=== PATIENT | female | born 1940 | race Caucasian/White ===

== ENCOUNTER 2017-12-07 23:52 | Observation (INO) | payer OTHER, BC ==
[2017-12-08] MEDS ORDERED: MECLIZINE HCL 25 MG TABLET (FP) PO ONE (00:18)
[2017-12-08 00:21] VITALS: BMI 30.2
--- NOTE | 2017-12-08 00:28 | PDOC ---
History of Present Illness - General Chief Complaint: Syncope/Near Syncope Stated Complaint: SYNCOPE History Source: Patient Exam Limitations: No Limitations - History of Present Illness Initial Comments: 12/08/17 00:20 Patient is a 77-year-old female with history of hypertension, diverticulitis, osteoarthritis, DJD pulmonary resection with excision of benign tumor, tonsillectomy, here with complaints of dizziness which started a bout an hour prior to presentation. Patient states she took her nighttime meds,then went to bed. She sat on the edge of the bed frame and then when trying to lay down she had sudden onset of dizzinessvertigo. She called her niece from the next room and had her put her to bed. However when she attemp she was too so EMS was called. She had no prodrome of ALVAREZ, diaphoresis, chest pain, nausea, vomiting. She had 1 prior episode of same symptoms many years ago. PMD: Dr. Bocanegra PMHX: as above PSOCHX: neg cig (stopped 40 years ago), neg etoh, neg drugs, lives with nieces ALL: NKDA GENERAL/CONSTITUTIONAL: [No fever or chills. No weakness. No weight change.] HEAD, EYES, EARS, NOSE AND THROAT: [No change in vision. No ear pain or discharge. No sore throat.] CARDIOVASCULAR: [No chest pain or shortness of breath.] RESPIRATORY: [No cough, wheezing, or hemoptysis.] GASTROINTESTINAL: [No nausea, vomiting, diarrhea or constipation. No rectal bleeding.] GENITOURINARY: [No dysuria, frequency, or change in urination.] MUSCULOSKELETAL: [No joint or muscle swelling or pain. No neck or back pain.] SKIN AND BREASTS: [No rash or easy bruising.] NEUROLOGIC: [No headache, (+) vertigo, (-) loss of consciousness, or loss of sensation.] PSYCHIATRIC: [No depression or anxiety.] ENDOCRINE: [No increased thirst. No abnormal weight change.] HEMATOLOGIC/LYMPHATIC: [No anemia, easy bleeding, or history of blood clots.] ALLERGIC/IMMUNOLOGIC: [No hives or skin allergy. No latex allergy.] GENERAL: [The patient is awake, alert, and fully oriented, in no acute distress. ] HEAD: [Normal with no signs of trauma.] EYES: [Pupils equal, round and reactive to light, extraocular movements intact, sclera anicteric, conjunctiva clear.] ENT: [Ears normal, nares patent, oropharynx clear without exudates. Moist mucous membranes.] NECK: [Normal range of motion, supple without lymphadenopathy, JVD, or masses.] LUNGS: [Breath sounds equal, clear to auscultation bilaterally. No wheezes, and no crackles.] HEART: [Regular rate and rhythm, normal S1 and S2 without murmur, rub.] ABDOMEN: [Soft, nontender, normoactive bowel sounds. No guarding, no rebound. No masses.] EXTREMITIES: [Normal range of motion, no edema. No clubbing or cyanosis. No cords, erythema, or tenderness.] NEUROLOGICAL: [Cranial nerves II through XII grossly intact. Normal speech, normal gait, no nystagmus.] PSYCH: [Normal mood, normal affect.] SKIN: [Warm, Dry, normal turgor, no rashes or lesions noted.] Past History - Past Medical History Allergies/Adverse Reactions: Allergies Allergy/AdvReac Type Severity Reaction Status Date / Time No Known Allergies Allergy Verified 12/08/17 01:05 Home Medications: Ambulatory Orders Aspirin Coated [Ecotrin -] 81 mg PO DAILY 12/08/17 Docusate Sodium [Colace] 200 mg PO HS 12/08/17 Losartan Potassium 50 mg PO BID 12/08/17 *Physical Exam - Vital Signs Last Vital Signs Temp Pulse Resp BP Pulse Ox 97.9 F 74 18 164/82 95 12/08/17 00:16 12/08/17 00:16 12/08/17 00:16 12/08/17 00:16 12/08/17 00:16 ED Treatment Course - LABORATORY CBC & Chemistry Diagram: 12/08/17 00:52 12/08/17 00:52 - ADDITIONAL ORDERS Additional order review: Laboratory Results 12/08/17 12/08/17 01:21 00:52 Sodium 140 Potassium 4.0 Chloride 103 Carbon Dioxide 26 Anion Gap 11 BUN 17 Creatinine 0.9 Creat Clearance w eGFR > 60 Random Glucose 110 H Calcium 8.7 Total Bilirubin 0.3 AST 18 ALT 17 Alkaline Phosphatase 86 Troponin I < 0.02 Total Protein 7.5 Albumin 3.5 Urine Color Ltyellow Urine Appearance Slcloudy Urine pH 6.0 Ur Specific [place] 1.010 Urine Protein Negative Urine Glucose (UA) Negative Urine Ketones Negative Urine Blood 1+ H Urine Nitrite Negative Urine Bilirubin Negative Urine Urobilinogen Negative Ur Leukocyte Esterase 1+ H Urine WBC (Auto) 12 Urine RBC (Auto) 23 Ur Epithelial Cells Moderate Urine Mucus Rare 12/08/17 00:52 RBC 4.60 MCV 88.0 MCHC 33.7 RDW 13.1 MPV 8.3 Neutrophils % 72.2 Lymphocytes % 18.5 Monocytes % 7.9 Eosinophils % 0.2 Basophils % 1.2 - RADIOLOGY Radiology Studies Ordered: Category Date Time Status BRAIN CTA [CT] Stat CT Scan 12/08/17 01:[address] WITHOUT CONTRAST [CT] Stat CT Scan 12/08/17 00:18 Taken NECK CTA [CT] Stat CT Scan 12/08/17 01:44 Ordered - Medications Given in the ED: ED Medications Discontinued Medications Generic Name Dose Route Start Last Admin Trade Name Freq PRN Reason Stop Dose Admin Ceftriaxone Sodium 1,000 mg/ 50 mls @ 100 mls/hr 12/08/17 03:11 12/08/17 03: 27 Dextrose IVPB 12/08/17 03:40 100 mls/hr ONCE ONE Administration Lorazepam 1 mg 12/08/17 03:07 12/08/17 03:26 Ativan Injection - IVPUSH 12/08/17 03:08 1 mg ONCE ONE Administration Meclizine HCl 50 mg 12/08/17 00:18 12/08/17 01:12 Antivert - PO 12/08/17 00:19 50 mg ONCE ONE Administration Medical Decision Making - Medical Decision Making 12/08/17 00:20 Patient is a 77-year-old female with history of hypertension, diverticulitis, osteoarthritis, DJD pulmonary resection with excision of benign tumor, tonsillectomy, here with complaints of dizziness which started a bout an hour prior to presentation. symptoms consistent with vertigo. Will get ct head 12/08/17 01:33 Patient Full Name: OPAL THOMASON Patient Accession No: [id number] Patient : [id number] Reason for Exam: dizziness Referring Physician: Patient Name: KATELIN JOSEPH PRELIMINARY REPORT FROM IMAGING MOBILE ENGINEER EXAM: CT brain noncontrast HISTORY: Dizziness IMAGES: 164 EXAM DATE AND TIME: 2017-12-08 00:38:09 FINDINGS: No evidence of intracranial hemorrhage, mass effect or recent stroke of a major vascular distribution. Diffuse white matter changes, likely from chronic ischemia. Cerebral atrophy. Mastoid air cells and imaged paranasal sinuses clear. No fracture. Individualized dose optimization techniques were used for this CT. THIS DOCUMENT HAS BEEN ELECTRONICALLY SIGNED Ramone Solano D.O. 12/08/2017 00:56 EST MRupaD. Please call Imaging Civil Project Engineer [phone] ([phone]) with questions. INTERPRETING RADIOLOGIST: Ramone Solano MD Electronically Signed: Dec 08, 2017 12:56AM EDT EKG SR rate 72, NAD, incomplete RBBB 12/08/17 03:51 Noted to have a wbc on UA treat with Rocephin neg CTA head and neck Vertigo symptoms not resolved will admit *DC/Admit/Observation/Transfer Diagnosis at time of Disposition: UTI (urinary tract infection), Dizziness - Discharge Dispostion Condition at time of disposition: Stable - Referrals Referrals: Gurwinder Bocanegra MD [Primary Care Provider] - - Patient Instructions - Post Discharge Activity
[2017-12-08] MEDS ORDERED: SODIUM CHLORIDE 1,000 ML IV SCH (00:30)
[2017-12-08 01:06] LABS: BASO % 1.2 % (0-2.0); EOS % 0.2 % (0-4.5); HEMATOCRIT 40.5 % (32.4-45.2); HEMOGLOBIN 13.6 GM/dL (10.7-15.3); LYMPH % 18.5 % (8-40); MCH 29.6 pg (25.7-33.7); MCHC 33.7 g/dl (32.0-36.0); MEAN PLT VOLUME 8.3 fl (7.5-11.1); MONO % 7.9 % (3.8-10.2); NEUT % 72.2 % (42.8-82.8); PLATELET COUNT 280 K/MM3 (134-434); RDW 13.1 % (11.6-15.6); WHITE BLOOD COUNT 8.7 K/mm3 (4.0-10.0)
[2017-12-08 01:35] LABS: ALBUMIN 3.5 g/dl (3.4-5.0); ANION GAP 11 MMOL/L (8-16); BILIRUBIN,TOTAL 0.3 mg/dL (0.2-1.0); BLOOD UREA NITROGEN 17 mg/dL (7-18); CALCIUM 8.7 mg/dL (8.5-10.1); CHLORIDE 103 mmol/L (98-107); CO2 26 mmol/L (21-32); CREATININE 0.9 mg/dL (0.55-1.02); GLUCOSE,RANDOM 110 mg/dL (74-106); SGOT/AST 18 U/L (15-37); SGPT/ALT 17 U/L (12-78); SODIUM 140 mmol/L (136-145); TOT PROT 7.5 g/dl (6.4-8.2)
[2017-12-08 01:36] LABS: URINE APPEARANCE SLCLOUDY; URINE BILIRUBIN NEGATIVE (<2.0 mg/dL); URINE COLOR LTYELLOW; URINE GLUCOSE (UA) NEGATIVE (NEGATIVE); URINE KETONE NEGATIVE (NEGATIVE); URINE NITRITE NEGATIVE (NEGATIVE); URINE PROTEIN NEGATIVE (NEGATIVE); URINE UROBILINOGEN NEGATIVE mg/dL (0.2-1.0)
[2017-12-08 01:37] LABS: ALK PHOS 86 U/L (45-117)
[2017-12-08 01:39] LABS: URINE LEUK ESTERASE 1+ (NEGATIVE)
[2017-12-08 01:40] LABS: EPI CELLS MODERATE /HPF (FEW); URINE MUCUS RARE
[2017-12-08] MEDS ORDERED: CEFTRIAXONE 1,000 MG in DEXTROSE 5%-WATER - 50 ML IVPB ONE (03:11)
--- NOTE | 2017-12-08 03:11 | PDOC ---
*Physical Exam - Vital Signs Last Vital Signs Temp Pulse Resp BP Pulse Ox 97.9 F 74 18 164/82 95 12/08/17 00:16 12/08/17 00:16 12/08/17 00:16 12/08/17 00:16 12/08/17 00:16 Heart Score/ECG Review - ECG Impressions Comment:: 12/08/17 03:31 EKG with sinus rhythm, TWF in III, RBBB noted, no prior, no ischemic changes. ED Treatment Course - LABORATORY CBC & Chemistry Diagram: 12/08/17 00:52 12/08/17 00:52 - ADDITIONAL ORDERS Additional order review: Laboratory Results 12/08/17 12/08/17 01:21 00:52 Sodium 140 Potassium 4.0 Chloride 103 Carbon Dioxide 26 Anion Gap 11 BUN 17 Creatinine 0.9 Creat Clearance w eGFR > 60 Random Glucose 110 H Calcium 8.7 Total Bilirubin 0.3 AST 18 ALT 17 Alkaline Phosphatase 86 Troponin I < 0.02 Total Protein 7.5 Albumin 3.5 Urine Color Ltyellow Urine Appearance Slcloudy Urine pH 6.0 Ur Specific [place] 1.010 Urine Protein Negative Urine Glucose (UA) Negative Urine Ketones Negative Urine Blood 1+ H Urine Nitrite Negative Urine Bilirubin Negative Urine Urobilinogen Negative Ur Leukocyte Esterase 1+ H Urine WBC (Auto) 12 Urine RBC (Auto) 23 Ur Epithelial Cells Moderate Urine Mucus Rare 12/08/17 00:52 RBC 4.60 MCV 88.0 MCHC 33.7 RDW 13.1 MPV 8.3 Neutrophils % 72.2 Lymphocytes % 18.5 Monocytes % 7.9 Eosinophils % 0.2 Basophils % 1.2 - Medications Given in the ED: ED Medications Discontinued Medications Generic Name Dose Route Start Last Admin Trade Name Freq PRN Reason Stop Dose Admin Meclizine HCl 50 mg 12/08/17 00:18 12/08/17 01:12 Antivert - PO 12/08/17 00:19 50 mg ONCE ONE Administration Medical Decision Making - Medical Decision Making 12/08/17 03:07 The patient was seen and evaluated in conjunction with midlevel provider under my direct supervision, ancillary studies were reviewed. I agree with the plan as outlined by THOMAS Kenney 77-year-old female with history of hypertension, diverticulitis,osteoarthritis, DJD pulmonary resection with excision of benign tumor, tonsillectomy, c/o dizziness worse with movement, vertigo-like sx. +urinary frequency, but no abd pain, hematuria, dysuria. no cp or sob, focal weakness or paresthesias. vitals wnl. meclizine --> ativan for treatment of vertigo/dizziness. IVF. basic labs, EKG, CT head, CTA head and neck to r/o central vertigo, vertebrobasilar insufficiency, posterior circ stroke,dissection/aneurysm. UA +UTI, WBCs and RBCs, IV ceftriaxone to treat empirically for possible underlying UTI unable to ambulate, fall risk CTA neg for acute infarct, small plaque w/o significant stenosis in b/l ICA. admit observation for supportive care, medical management and hydration, symptom control. called to PMD Dr. Bocanegra. admit to hospitalist 12/08/17 03:26 12/08/17 03:31 *DC/Admit/Observation/Transfer Diagnosis at time of Disposition: UTI (urinary tract infection), Dizziness - Discharge Dispostion Condition at time of disposition: Stable Decision to Admit order: Yes - Referrals Referrals: Gurwinder Bocanegra MD [Primary Care Provider] - - Patient Instructions - Post Discharge Activity
[2017-12-08] MEDS ORDERED: LORazepam 2 MG/ML SDV VIAL ONE (03:19)
[2017-12-08] MEDS ORDERED: CEFTRIAXONE 1 GM/50 ML BAG ONE ×2 (03:19→09:04)
--- NOTE | 2017-12-08 04:07 | PN ---
Teaching Attending Note Name of Resident: Sharda Matias ATTENDING PHYSICIAN STATEMENT I saw and evaluated the patient. I reviewed the resident's note and discussed the case with the resident. I agree with the resident's findings and plan as documented. SUBJECTIVE: Patient is a 77 year old woman with history of hypertension, diverticulitis, osteoarthritis, DJD, pulmonary resection with excision of benign tumor, tonsillectomy, who presents with complaints of dizziness for 1 hour. Says she took her nighttime medications, then went to bed. She sat on the edge of the bed frame and then when trying to lay down she had sudden onset of dizziness vertigo. She called her niece from the next room and had her put her to bed. However when symptoms persisted EMS was called. She had no diaphoresis, chest pain, nausea, vomiting, fecal or urinary incontinence. She had 1 prior episode of same symptoms many years ago. OBJECTIVE: Alert Vital Signs Period Temp Pulse Resp BP Sys/Ruth Pulse Ox Last 24 Hr 97.9 F 74 18 164/82 95 HEENT: No Jaundice, eye redness or discharge, PERRLA, EOMI. Normocephalic, atraumatic. External ears are normal and hearing is grossly intact. No nasal discharge. Neck: Supple, nontender. No palpable adenopathy or thyromegaly. No JVD Chest: Good effort. Clear to auscultation and percussion. Heart: Regular. No S3, rub or murmur Abdomen: Not distended, soft, nontender and no HSM. No rebound or guarding. Normoactive bowel sounds. Ext: Peripheral pulses intact. No leg edema. Skin: Warm and dry. No petechiae, rash or ecchymosis. Neuro: Alert. Oriented x3. CN 2-12 grossly intact. Sensation grossly intact in all four extremities and DTR are symmetric. Current Medications Generic Name Dose Route Start Last Admin Trade Name Freq PRN Reason Stop Dose Admin Sodium Chloride 1,000 mls @ 150 mls/hr 12/08/17 00:30 12/08/17 01:12 Normal Saline - IV 150 mls/hr ASDIR LORAINE Administration Home Medications Medication Instructions Recorded Aspirin Coated [Ecotrin -] 81 mg PO DAILY 12/08/17 Docusate Sodium [Colace] 200 mg PO HS 12/08/17 Losartan Potassium 50 mg PO BID 12/08/17 Abnormal Lab Results 12/08/17 12/08/17 00:52 01:21 Random Glucose 110 H Urine Blood 1+ H Ur Leukocyte Esterase 1+ H ASSESSMENT AND PLAN: 1. Dizziness - Either one or a combination of UTI, uncontrolled hypertension and effect of the hot weather may explain dizziness. Got meclizine for vertigo - patient counseled to ensure adequate hydration and avoid sudden head turns. Will treat UTI with Ceftriaxone pending culture, give her IV NS, and add amlodipine to improve BP control. Monitor on telemetry, get carotid doppler and brain MRI. Implement fall precautions. Consult neurology. 2. Obesity - Will provide patient all the necessary assistance, counseling and positive reinforcement to facilitate weight loss. Consult leaf binner. 3. DVT prophylaxis - Lovenox 40 mg SQ q 24 hours. 4. Advance directives - Full code
--- NOTE | 2017-12-08 05:50 | HP ---
CHIEF COMPLAINT: dizziness PCP: Dr. Gurwinder Bocanegra HISTORY OF PRESENT ILLNESS: 77 y/o female with PMH of HTN, osteoarthritis, DJD, diverticulitis s/p colonic resection, pulmonary resection with benign tumor excision presents to the ED with a one hour history of vertigo. Patient states that she felt fine during the day and then as she was going to bed started to feel that the room was spinning around her. She tried to lay down to go to sleep but the dizziness persisted and she called her niece to bring her to the ER. She denies any nausea /vomiting/diarrhea. ER course was notable for: (1) CT brain was negative for ICH, (2) CTA was negative for acute infarct (3) U/A positive for UTI Recent Travel: none PAST MEDICAL HISTORY: see HPI PAST SURGICAL HISTORY: see HPI Social History: Smoking: former smoker quit 40 years ago Alcohol:denies Drugs: denies lives with her nieces; ambulates with walker Family History: Allergies No Known Allergies Allergy (Verified 12/08/17 01:05) HOME MEDICATIONS: Home Medications Medication Instructions Recorded Aspirin Coated [Ecotrin -] 81 mg PO DAILY 12/08/17 Docusate Sodium [Colace] 200 mg PO HS 12/08/17 Losartan Potassium 50 mg PO BID 12/08/17 REVIEW OF SYSTEMS CONSTITUTIONAL: Absent: fever, chills, diaphoresis, generalized weakness, malaise, loss of appetite, weight change HEENT: Absent: rhinorrhea, nasal congestion, throat pain, throat swelling, difficulty swallowing, mouth swelling, ear pain, eye pain, visual changes CARDIOVASCULAR: Present: lightheadedness, Absent: chest pain, syncope, palpitations, irregular heart rate, peripheral edema RESPIRATORY: Absent: cough, shortness of breath, dyspnea with exertion, orthopnea, wheezing, stridor, hemoptysis GASTROINTESTINAL: Absent: abdominal pain, abdominal distension, nausea, vomiting, diarrhea, constipation, melena, hematochezia GENITOURINARY: Absent: dysuria, frequency, urgency, hesitancy, hematuria, flank pain, genital pain MUSCULOSKELETAL: Absent: myalgia, arthralgia, joint swelling, back pain, neck pain SKIN: Absent: rash, itching, pallor HEMATOLOGIC/IMMUNOLOGIC: Absent: easy bleeding, easy bruising, lymphadenopathy, frequent infections ENDOCRINE: Absent: unexplained weight gain, unexplained weight loss, heat intolerance, cold intolerance NEUROLOGIC: Present: dizziness, Absent: headache, focal weakness or paresthesias, unsteady gait, seizure, mental status changes, bladder or bowel incontinence PSYCHIATRIC: Absent: anxiety, depression, suicidal or homicidal ideation, hallucinations. PHYSICAL EXAMINATION Vital Signs - 24 hr 12/08/17 12/08/17 00:16 02:45 Temperature 97.9 F 98.3 F Pulse Rate 74 Pulse Rate [ 72 Apical] Respiratory 18 18 Rate Blood Pressure 164/82 Blood Pressure 164/68 [Right Arm] O2 Sat by Pulse 95 100 Oximetry (%) ORTHOSTATIC VITALS: laying (135/71), sitting up (145/84), standing up (178/92) GENERAL: Awake, alert, and fully oriented, in no acute distress. EARS, NOSE, THROAT: Ears normal, no fluid visualized; both tympanic membranes visualized. NECK:no JVD appreciated LUNGS:CTA B/L; no rales, rhonchi, wheezing HEART: Regular rate and rhythm, normal S1 and S2 without murmur, rub or gallop. ABDOMEN: Soft, nontender, not distended, normoactive bowel sounds, no guarding, no rebound, no masses. No hepatomegaly or splenomegaly. MUSCULOSKELETAL: Normal range of motion at all joints. No bony deformities or tenderness. No CVA tenderness. EXTREMITIES: warm; well perfused, no clubbing/cyanosis or LE edema NEUROLOGICAL: Cranial nerves II-XII intact. Normal speech; weakness upon ambulation PSYCHIATRIC: Cooperative. Good eye contact. Appropriate mood and affect. SKIN: Warm, dry, normal turgor, no rashes or lesions noted, normal capillary refill. Laboratory Results - last 24 hr 12/08/17 12/08/17 12/08/17 00:52 00:52 01:21 WBC 8.7 RBC 4.60 Hgb 13.6 Hct 40.5 MCV 88.0 MCH 29.6 MCHC 33.7 RDW 13.1 Plt Count 280 MPV 8.3 Absolute Neuts (auto) 6.3 Neutrophils % 72.2 Lymphocytes % 18.5 Monocytes % 7.9 Eosinophils % 0.2 Basophils % 1.2 Nucleated RBC % 0 Sodium 140 Potassium 4.0 Chloride 103 Carbon Dioxide 26 Anion Gap 11 BUN 17 Creatinine 0.9 Creat Clearance w eGFR > 60 Random Glucose 110 H Calcium 8.7 Total Bilirubin 0.3 AST 18 ALT 17 Alkaline Phosphatase 86 Troponin I < 0.02 Total Protein 7.5 Albumin 3.5 Urine Color Ltyellow Urine Appearance Slcloudy Urine pH 6.0 Ur Specific [place] 1.010 Urine Protein Negative Urine Glucose (UA) Negative Urine Ketones Negative Urine Blood 1+ H Urine Nitrite Negative Urine Bilirubin Negative Urine Urobilinogen Negative Ur Leukocyte Esterase 1+ H Urine WBC (Auto) 12 Urine RBC (Auto) 23 Ur Epithelial Cells Moderate Urine Mucus Rare ASSESSMENT/PLAN: 77 y/o female with PMH of HTN, DJD, diverticulitis presents to the ED with one hour history of vertigo upon bedtime. #1: Vertigo: vertigo possibly 2/2 UTI -CT brain negative in addition to CTA -MRI brain ordered -Neuro consulted -carotid dopplers ordered -meclizine PRN for vertigo #2: Hypertension -added norvasc 5 daily #3: UTI -ceftriaxone 1gram daily -ID consulted DVT prophylaxis: lovenox 40 daily F/E/N: NS @50mls/hr replete electrolytes when needed sodium controlled diet dispo: telemetry Problem List - Problem (1) Dizziness Code(s): R42 - DIZZINESS AND GIDDINESS (2) UTI (urinary tract infection) Code(s): N39.0 - URINARY TRACT INFECTION, SITE NOT SPECIFIED Visit type - Emergency Visit Emergency Visit: Yes ED Registration Date: 12/08/17 Care time: The patient presented to the Emergency Department on the above date and was hospitalized for further evaluation of their emergent condition. - New Patient This patient is new to me today: Yes Date on this admission: 12/08/17 - Critical Care Critical Care patient: No Hospitalist Screening - Colonoscopy Questionnaire Colonoscopy Questionnaire: Colonoscopy Questionnaire - Patient: 50 - 75 years old and never had a screening colonoscopy: Unknown History of colon or rectal polyps, or CA: Unknown History of IBD, Crohn's disease or UC: Unknown History of abdominal radiation therapy as a child: Unknown - Relative: 1 with colon or rectal CA, or polyps at age 60 or younger: Unknown Colon or rectal CA diagnosed at age 45 or younger: Unknown Multiple relatives with colon or rectal CA: Unknown - Outcome: Screening Result: Negative Screen
[2017-12-08] MEDS ORDERED: amLODIPine BESYLATE 5 MG TABLET (FP) ONE ×2 (06:15→10:20)
[2017-12-08] MEDS: amLODIPine BESYLATE 5 MG TABLET (FP) PO SCH ×2 (06:33→16:05)
[2017-12-08] MEDS: SODIUM CHLORIDE 1,000 ML IV SCH ×2 (06:33→12:40)
[2017-12-08] MEDS ORDERED: ASPIRIN COATED 81 MG TABLET.EC ONE (09:03)
[2017-12-08] MEDS ORDERED: ENOXAPARIN NA (PORCINE) 40 MG/0.4 ML DISP.SYRIN SQ ONE (09:04)
[2017-12-08] MEDS: ENOXAPARIN NA (PORCINE) 40 MG/0.4 ML DISP.SYRIN SQ SCH (09:05)
[2017-12-08] MEDS: ASPIRIN COATED 81 MG TABLET.EC PO SCH (09:05)
[2017-12-08 09:25] LABS: HEMATOCRIT 41.1 % (32.4-45.2); HEMOGLOBIN 13.9 GM/dL (10.7-15.3); MCH 29.8 pg (25.7-33.7); MCHC 33.7 g/dl (32.0-36.0); MEAN CELL VOLUME 88.2 fl (80-96); PLATELET COUNT 243 K/MM3 (134-434); RBC 4.66 M/mm3 (3.60-5.2); WHITE BLOOD COUNT 7.4 K/mm3 (4.0-10.0)
[2017-12-08 10:04] LABS: ALBUMIN 3.3 g/dl (3.4-5.0); ANION GAP 10 MMOL/L (8-16); BLOOD UREA NITROGEN 12 mg/dL (7-18); CALCIUM 8.7 mg/dL (8.5-10.1); CHLORIDE 110 mmol/L (98-107); CO2 24 mmol/L (21-32); GLUCOSE,RANDOM 95 mg/dL (74-106); MAGNESIUM 2.2 mg/dL (1.8-2.4); PHOSPHOROUS 3.1 mg/dL (2.5-4.9); POTASSIUM 3.8 mmol/L (3.5-5.1); SGOT/AST 14 U/L (15-37); SODIUM 144 mmol/L (136-145)
[2017-12-08 10:06] LABS: ALK PHOS 81 U/L (45-117); BILIRUBIN,TOTAL 0.3 mg/dL (0.2-1.0); CREATININE 0.6 mg/dL (0.55-1.02); SGPT/ALT 17 U/L (12-78); TOT PROT 6.9 g/dl (6.4-8.2)
[2017-12-08] MEDS: LOSARTAN POTASSIUM 50 MG TABLET (FP) PO SCH ×2 (10:09→21:20)
--- NOTE | 2017-12-08 14:33 | EKG ---
Test Reason : Blood Pressure : / mmHG Vent. Rate : 072 BPM Atrial Rate : 072 BPM P-R Int : 144 ms QRS Dur : 114 ms QT Int : 404 ms P-R-T Axes : 044 023 033 degrees QTc Int : 442 ms NORMAL SINUS RHYTHM WITH SINUS ARRHYTHMIA INCOMPLETE RIGHT BUNDLE BRANCH BLOCK BORDERLINE ECG NO PREVIOUS ECGS AVAILABLE Confirmed by Rad Duran ([id number]) on 12/08/2017 2:33:43 PM Referred By: Confirmed By:Rad Duran
--- NOTE | 2017-12-08 15:49 | PN ---
Progress Note (short form) - Note Progress Note: ID consult dictated imp/reccd 77 year old female admitted with dizziness she has had urinary incontinence since her prior diverticulitis surgery niece reports she has had increasing memory loss, some paranoia- she is concerned about early dementia no fevers or chills no dysuria UA is contaminated PE is normal - no cvat or suprapubic pain normal WBC, no fever doubt UTI- UA more c/w contamination/asymptomatic bacteriuria would d/c rocephin neuro eval for dizziness and ?early dementia plese call back if needed Problem List - Problems (1) Dizziness Code(s): R42 - DIZZINESS AND GIDDINESS (2) Asymptomatic bacteriuria Code(s): R82.71 - BACTERIURIA (3) UTI (urinary tract infection) Code(s): N39.0 - URINARY TRACT INFECTION, SITE NOT SPECIFIED
--- NOTE | 2017-12-08 18:05 | PN ---
Teaching Attending Note Name of Resident: Leti Sheffield ATTENDING PHYSICIAN STATEMENT I saw and evaluated the patient. I reviewed the resident's note and discussed the case with the resident. I agree with the resident's findings and plan as documented. SUBJECTIVE:no current dizzyness. had episode last night which started while laying down at rest. unable to describe if it was room spinning or unsteadyness but "just what my body was experiencing". resolved once given meclizine in the ER. no recurrent episodes since then and none in the past. +urinary frequency. denies Cp, SOB, fever, chills, weakness/numbnesss on one side of the body. OBJECTIVE: Last Vital Signs Temp Pulse Resp BP Pulse Ox 97.7 F 70 20 117/60 98 12/08/17 14:21 12/08/17 14:21 12/08/17 14:21 12/08/17 14:21 12/08/17 13:59 General NAD HEENT no nystagmus Neuro CN grossly intact. sensation and strength equal in all 4 extremities. neg dysmetria or dysdakinesia. negative heel to cantor. gait testing deferred ASSESSMENT AND PLAN: 77yo F wtih PMH HTN, diverticulsis s/p colon resection, benign pulmonary tumor s /p resection presented to the Er after episode of dizzyness 1. Dizzyness- likely BPPV vs uncontrolled HTN. low concern for vertrabral insuff given negative CTA and head CT and resolution of symptoms. meclizine and norvasc given in the ER with resolution. neuro consulted for further workup. refusing MRI at this time. carotid doppler pending 2. +UA- unclear if patient has symptoms. received ceftriaxone in the ER. ID consulted if should be continued. f/u Cx 3. HTN urgency- given norvasc with improvement. now controlled. cont current management 4. Spoke with niece (whom pt lives with) present at bedside. all questions answered. PT eval. explained possible d/c tomorrow if pt continues to improve.
--- NOTE | 2017-12-08 18:53 | PN ---
Physical Exam: SUBJECTIVE: Patient seen and examined at bedside this morning. She states that she does not have any episodes of dizziness anymore. OBJECTIVE: Vital Signs Period Temp Pulse Resp BP Sys/Ruth Pulse Ox Last 24 Hr 97.5 F-98.5 F 63-80 14-20 117-164/56-82 95-100 GENERAL: The patient is awake, alert, and fully oriented, in no acute distress. HEAD: Normal with no signs of trauma. EYES: PERRLA, EOMI, sclera anicteric, conjunctiva clear. No nystagmus. ENT: Ears normal, nares patent, oropharynx clear without exudates, moist mucous membranes. NECK: Trachea midline, full range of motion, supple. LUNGS: Breath sounds equal, clear to auscultation bilaterally. HEART: Regular rate and rhythm, S1, S2 without murmur, rub or gallop. ABDOMEN: Soft, nontender, nondistended, normoactive bowel sounds. EXTREMITIES: 2+ pulses, warm, well-perfused, no edema. NEUROLOGICAL: Cranial nerves II through XII grossly intact. Normal speech, gait not observed. PSYCH: Normal mood, normal affect. SKIN: Warm, dry, normal turgor, no rashes or lesions noted Laboratory Results - last 24 hr 12/08/17 12/08/17 12/08/17 00:52 00:52 01:21 WBC 8.7 RBC 4.60 Hgb 13.6 Hct 40.5 MCV 88.0 MCH 29.6 MCHC 33.7 RDW 13.1 Plt Count 280 MPV 8.3 Absolute Neuts (auto) 6.3 Neutrophils % 72.2 Lymphocytes % 18.5 Monocytes % 7.9 Eosinophils % 0.2 Basophils % 1.2 Nucleated RBC % 0 Sodium 140 Potassium 4.0 Chloride 103 Carbon Dioxide 26 Anion Gap 11 BUN 17 Creatinine 0.9 Creat Clearance w eGFR > 60 Random Glucose 110 H Calcium 8.7 Phosphorus Magnesium Total Bilirubin 0.3 AST 18 ALT 17 Alkaline Phosphatase 86 Troponin I < 0.02 Total Protein 7.5 Albumin 3.5 Urine Color Ltyellow Urine Appearance Slcloudy Urine pH 6.0 Ur Specific [place] 1.010 Urine Protein Negative Urine Glucose (UA) Negative Urine Ketones Negative Urine Blood 1+ H Urine Nitrite Negative Urine Bilirubin Negative Urine Urobilinogen Negative Ur Leukocyte Esterase 1+ H Urine WBC (Auto) 12 Urine RBC (Auto) 23 Ur Epithelial Cells Moderate Urine Mucus Rare 12/08/17 12/08/17 09:19 09:19 WBC 7.4 RBC 4.66 Hgb 13.9 Hct 41.1 MCV 88.2 MCH 29.8 MCHC 33.7 RDW 13.0 Plt Count 243 MPV 8.0 Absolute Neuts (auto) Neutrophils % Lymphocytes % Monocytes % Eosinophils % Basophils % Nucleated RBC % Sodium 144 Potassium 3.8 Chloride 110 H Carbon Dioxide 24 Anion Gap 10 BUN 12 Creatinine 0.6 Creat Clearance w eGFR > 60 Random Glucose 95 Calcium 8.7 Phosphorus 3.1 Magnesium 2.2 Total Bilirubin 0.3 AST 14 L ALT 17 Alkaline Phosphatase 81 Troponin I Total Protein 6.9 Albumin 3.3 L Urine Color Urine Appearance Urine pH Ur Specific [place] Urine Protein Urine Glucose (UA) Urine Ketones Urine Blood Urine Nitrite Urine Bilirubin Urine Urobilinogen Ur Leukocyte Esterase Urine WBC (Auto) Urine RBC (Auto) Ur Epithelial Cells Urine Mucus Active Medications Generic Name Dose Route Start Last Admin Trade Name Freq PRN Reason Stop Dose Admin Amlodipine Besylate 5 mg 12/08/17 05:36 12/08/17 16:05 Norvasc - PO Not Given DAILY LORAINE Aspirin 81 mg 12/08/17 10:00 12/08/17 09:05 Ecotrin - PO 81 mg DAILY LORAINE Administration Enoxaparin Sodium 40 mg 12/08/17 10:00 12/08/17 09:05 Lovenox - SQ 40 mg DAILY LORAINE Administration Sodium Chloride 1,000 mls @ 50 mls/hr 12/08/17 05:40 12/08/17 12:40 Normal Saline - IV 50 mls/hr ASDIR LORAINE Administration Losartan Potassium 50 mg 12/08/17 10:00 12/08/17 10:09 Cozaar - PO 50 mg BID LORAINE Administration ASSESSMENT/PLAN: eneral NAD HEENT no nystagmus Neuro CN grossly intact. sensation and strength equal in all 4 extremities. neg dysmetria or dysdakinesia. negative heel to cantor. gait testing deferred ASSESSMENT AND PLAN: 77yo F wtih PMH HTN, diverticulsis s/p colon resection, benign pulmonary tumor s /p resection presented to the Er after episode of dizzyness 1. Dizzyness- likely BPPV vs uncontrolled HTN. low concern for vertrabral insuff given negative CTA and head CT and resolution of symptoms. meclizine and norvasc given in the ER with resolution. neuro consulted for further workup. refusing MRI at this time. carotid doppler pending 2. +UA- unclear if patient has symptoms. received ceftriaxone in the ER. ID consulted if should be continued. f/u Cx 3. HTN urgency- given norvasc with improvement. now controlled. cont current management 4. Spoke with niece (whom pt lives with) present at bedside. all questions answered. PT eval. explained possible d/c tomorrow if pt continues to improve. 77 y/o female with PMH of HTN, DJD, diverticulitis presents to the ED with one hour history of vertigo upon bedtime. 77 year old female admitted with dizziness she has had urinary incontinence since her prior diverticulitis surgery niece reports she has had increasing memory loss, some paranoia- she is concerned about early dementia no fevers or chills no dysuria UA is contaminated PE is normal - no cvat or suprapubic pain normal WBC, no fever doubt UTI- UA more c/w contamination/asymptomatic bacteriuria would d/c rocephin neuro eval for dizziness and ?early dementia plese call back if needed #Vertigo -pt experienced vertigo described as room spinning around her when she laid down , and worsened when she sat back up. -likely 2/2 BPPV vs uncontrolled HTN -Head CT - Mild volume loss compatible with the patient's age. Probable mild periventricular chronic microvascular ischemic disease changes. No mass lesion or gross acute intracranial pathology are identified. -CTA of head and neck - In the neck, there is a tiny calcified plaque at the right and left common carotid bifurcation without evidence of hemodynamically significant stenosis. Dominant left vertebral artery relative to the right without gross evidence of focal stenosis or dissection. Intracranially, no focal stenosis, aneurysm, major artery cutoff or vascular malformation are identified,bilaterally. C3-C4 mild left paracentral disc bulge/posterior spur formation and left uncovertebral hypertrophy likely impinging left C4 nerve root. -Carotid dopplers - Intimal thickening in the distal common carotid artery bifurcation, bilaterally with small plaques on the right and without evidence of hemodynamically significant stenosis, bilaterally. -MRI brain ordered. Patient refused as she reports to be claustrophobic. She was given Ativan at the ED, but pt still refused. -Meclizine given at the ED which provided relief of dizziness. -Meclizine PRN for vertigo. -Neuro consulted. #Hypertension -added norvasc 5 mg daily -continue Losartan 50mg BID #UTI -Dr. Zuñiga consulted. Recommendations appreciated. -Patient has no fevers or chills, no dysuria. -PE is normal with no CVA tenderness or suprapubic pain, normal WBC -UA more consistent with contamination/asymptomatic bacteriuria. Doubt UTI -Discontinue rocephin #FEN -IV NS @ 50ml/hr -electrolytes wnl, routine bmp monitoring -sodium controlled diet #PPx -Lovenox 40mg daily #Disposition -tele Visit type - Emergency Visit Emergency Visit: Yes ED Registration Date: 12/08/17 Care time: The patient presented to the Emergency Department on the above date and was hospitalized for further evaluation of their emergent condition. - New Patient This patient is new to me today: Yes Date on this admission: 12/08/17 - Critical Care Critical Care patient: No
--- NOTE | 2017-12-08 23:46 | CONS ---
DATE OF CONSULTATION: DATE OF DICTATION: 12/08/2017 HISTORY OF PRESENT ILLNESS: This is a 77-year-old woman who lives at home. She lives with her niece and her niece's family. She was admitted to the hospital with dizziness. Apparently she became dizzy at home. She sat on the bed. She was unable to get up, and as the dizziness persisted, she was brought to the ER. She denies vertigo. She denies any tinnitus or any pain in her ears. I am asked to see her for possible UTI. She gives a history of having had urinary incontinence since her prior diverticulitis surgery many years ago. She gets up frequently at night, and this has been unchanged for the last year. She has no fevers or chills. She has no dysuria. Of note, she has urinary frequency which she attributes to drinking a lot of water. She also has a level of urinary incontinence. The niece reports she has had increasing memory loss, some paranoia. She is concerned about early dementia. PAST MEDICAL HISTORY: Notable for history of hypertension, osteoarthritis, DJD, diverticulitis status post colon resection and pulmonary resection for benign tumor excision in her lung. SOCIAL HISTORY: She lives with her niece. She ambulates with a walker. Former smoker, stopped 40 years ago. No history of illicit drug use. She has no known drug allergies. MEDICATION: Her medications at home include aspirin, Colace, and losartan. She is followed by Dr. Bocanegra as an outpatient. REVIEW OF SYSTEMS: There has been no weight loss. She has no fever or chills. She has chronic urinary incontinence which is unchanged. PHYSICAL EXAMINATION: GENERAL: She is awake and alert. VITAL SIGNS: Temperature 97.7, pulse 70, blood pressure 170/60, respiratory rate 20. HEENT: Normocephalic. Eyes are anicteric. NECK: Supple. LUNGS: Clear to auscultation. HEART: Regular rate and rhythm. ABDOMEN: Soft, nontender. She has no suprapubic or CVA pain. EXTREMITIES: Without edema. LABORATORY: Notable for white count of 8.7, hemoglobin 13.6, platelets 280. Chemistries are normal. Urinalysis has 1+ leukocytes with moderate epithelial cells and 12 white cells. Chest x-ray is negative for infiltrate. IMPRESSION: In summary, this is a 77-year-old woman admitted with contaminated urine, admitted with dizziness. I doubt urinary tract infection given the fact she had no localizing symptoms to her urine and the urinalysis is contaminated. Her exam is normal. No costovertebral angle tenderness or suprapubic pain. She has a normal white count without fever. I doubt she has urinary tract infection. The urinalysis is more consistent with contamination and/or asymptomatic bacteruria. I would suggest we stop her antibiotics. She needs a neuro evaluation for dizziness and for the question of early dementia. Please call back if needed. MARTINEZ SANTIAGO M.D. [id number]
[2017-12-09] MEDS: SODIUM CHLORIDE 1,000 ML IV SCH (05:53)
--- NOTE | 2017-12-09 07:05 | PN ---
Physical Exam: SUBJECTIVE: Patient seen and examined at bedside. She states that she does not have any episodes of dizziness anymore. OBJECTIVE: Vital Signs Period Temp Pulse Resp BP Sys/Ruth Pulse Ox Last 24 Hr 97.7 F-98.9 F 60-85 17-20 117-165/60-76 96-98 GENERAL: The patient is awake, alert, and fully oriented, in no acute distress. HEAD: Normal with no signs of trauma. EYES: PERRL, extraocular movements intact, sclera anicteric, conjunctiva clear. No ptosis. ENT: Ears normal, nares patent, oropharynx clear without exudates, moist mucous membranes. NECK: Trachea midline, full range of motion, supple. LUNGS: Breath sounds equal, clear to auscultation bilaterally, no wheezes, no crackles, no accessory muscle use. HEART: Regular rate and rhythm, S1, S2 without murmur, rub or gallop. ABDOMEN: Soft, nontender, nondistended, normoactive bowel sounds, no guarding, no rebound, no hepatosplenomegaly, no masses. EXTREMITIES: 2+ pulses, warm, well-perfused, no edema. NEUROLOGICAL: Cranial nerves II through XII grossly intact. Normal speech, gait not observed. PSYCH: Normal mood, normal affect. SKIN: Warm, dry, normal turgor, no rashes or lesions noted Laboratory Results - last 24 hr 12/08/17 12/08/17 09:19 09:19 WBC 7.4 RBC 4.66 Hgb 13.9 Hct 41.1 MCV 88.2 MCH 29.8 MCHC 33.7 RDW 13.0 Plt Count 243 MPV 8.0 Sodium 144 Potassium 3.8 Chloride 110 H Carbon Dioxide 24 Anion Gap 10 BUN 12 Creatinine 0.6 Creat Clearance w eGFR > 60 Random Glucose 95 Calcium 8.7 Phosphorus 3.1 Magnesium 2.2 Total Bilirubin 0.3 AST 14 L ALT 17 Alkaline Phosphatase 81 Total Protein 6.9 Albumin 3.3 L Active Medications Generic Name Dose Route Start Last Admin Trade Name Freq PRN Reason Stop Dose Admin Amlodipine Besylate 5 mg 12/08/17 05:36 12/08/17 16:05 Norvasc - PO Not Given DAILY LORAINE Aspirin 81 mg 12/08/17 10:00 12/08/17 09:05 Ecotrin - PO 81 mg DAILY LORAINE Administration Enoxaparin Sodium 40 mg 12/08/17 10:00 12/08/17 09:05 Lovenox - SQ 40 mg DAILY LORAINE Administration Sodium Chloride 1,000 mls @ 50 mls/hr 12/08/17 05:40 12/09/17 05:53 Normal Saline - IV 50 mls/hr ASDIR LORAINE Administration Losartan Potassium 50 mg 12/08/17 10:00 12/08/17 21:20 Cozaar - PO 50 mg BID LORAINE Administration ASSESSMENT/PLAN: Patient is a 77 y/o female with PMH of HTN, osteoarthritis, DJD, diverticulitis s/p colonic resection, pulmonary resection with benign tumor excision presents to the ED with a one hour history of vertigo. #Vertigo -pt experienced vertigo described as room spinning around her when she laid down , and worsened when she sat back up. -likely 2/2 BPPV vs uncontrolled HTN -Head CT - Mild volume loss compatible with the patient's age. Probable mild periventricular chronic microvascular ischemic disease changes. No mass lesion or gross acute intracranial pathology are identified. -CTA of head and neck - In the neck, there is a tiny calcified plaque at the right and left common carotid bifurcation without evidence of hemodynamically significant stenosis. Dominant left vertebral artery relative to the right without gross evidence of focal stenosis or dissection. Intracranially, no focal stenosis, aneurysm, major artery cutoff or vascular malformation are identified,bilaterally. C3-C4 mild left paracentral disc bulge/posterior spur formation and left uncovertebral hypertrophy likely impinging left C4 nerve root. -Carotid dopplers - Intimal thickening in the distal common carotid artery bifurcation, bilaterally with small plaques on the right and without evidence of hemodynamically significant stenosis, bilaterally. -MRI brain ordered. Patient refused as she reports to be claustrophobic. She was given Ativan at the ED, but pt still refused. -Meclizine given at the ED which provided relief of dizziness. -Meclizine PRN for vertigo. -Dr. Mckee consulted. Recommendations appreciated. 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 #Hypertension -added norvasc 5 mg daily -continue Losartan 50mg BID #UTI -Dr. Zuñiga consulted. Recommendations appreciated. -Patient has no fevers or chills, no dysuria. -PE is normal with no CVA tenderness or suprapubic pain, normal WBC -UA more consistent with contamination/asymptomatic bacteriuria. Doubt UTI -Discontinue rocephin #FEN -IV NS @ 50ml/hr -electrolytes wnl, routine bmp monitoring -sodium controlled diet #PPx -Lovenox 40mg daily #Disposition -tele
--- NOTE | 2017-12-09 09:15 | CONSULT ---
Consult - text type - Consultation Consultation Note: NEUROLOGY CONSULTATION is greatly appreciated: This 78 yo RH woman lives with her niece and her family. PMH sig for HTN, diverticular disease and osteoarthritis. Maintained on Losartan, ASA. Pt describes at least a "few years" of slowly progressive gait deterioration requiring a cane x 1 year. More unsteady over the last few weeks with c/o "dizziness" when getting up to walk. Never dizzy in bed or sitting in chair. No falls. + episodic tinnitus in "both ears." CT of head (reviewed): Mild-mod, diffuse atrophy, scattered white matter changes , speckled basal ganglia calcifications. CT angio of brain and neck: scattered plaque without stenoses. Cervical spondylosis. Urine WBC=12. Given 1 dose of ceftriaxone ELIF: No head trauma. No bruits. Cor reg. NEURO: MS/speech normal although history is quite vague. No frontal release findings CN II-XII: normal without nystagmus Motor: No drift or tremor. Normal strength and reflexes. Toes downgoing. No cogwheeling. Coord: No FTN dystaxia Sensory: Normal. Romberg neg. Gait: wide-based, shuffling. 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 Recent worsening (subacute) is consistent with Toxic-metabolic encephalopathy (such as UTI). Doubt labyrinthine vertigo but cannot exclude. SUGGEST: Check orthostatic BP's Continue more aggressive BP control. Check B12, TSH, RPR. PT for gait with walker which should be continued on an out patient basis. Out patient f/u with Dr. Bocanegra for repeat U/A, C&S and Rx if indicated. Thank you very much, Dami Mckee MD
[2017-12-09] MEDS: ENOXAPARIN NA (PORCINE) 40 MG/0.4 ML DISP.SYRIN SQ SCH (09:34)
[2017-12-09] MEDS: LOSARTAN POTASSIUM 50 MG TABLET (FP) PO SCH (09:34)
[2017-12-09] MEDS: amLODIPine BESYLATE 5 MG TABLET (FP) PO SCH (09:34)
[2017-12-09] MEDS: ASPIRIN COATED 81 MG TABLET.EC PO SCH (09:34)
[2017-12-09] MEDS ORDERED: CEFTRIAXONE 1 GM in DEXTROSE 5%-WATER - 50 ML IVPB SCH (10:00)
[2017-12-09 11:57] VITALS: TEMP 98.3
--- NOTE | 2017-12-09 14:31 | PN ---
Teaching Attending Note Name of Resident: Leti Sheffield ATTENDING PHYSICIAN STATEMENT I saw and evaluated the patient. I reviewed the resident's note and discussed the case with the resident. I agree with the resident's findings and plan as documented. SUBJECTIVE:no repeat episodes of dizzyness. no difficulty ambulating to the bathroom per pt. dneies Cp, SOB, fever, chills, N/V/C/D OBJECTIVE: Last Vital Signs Temp Pulse Resp BP Pulse Ox 98.3 F 78 18 132/78 98 12/09/17 10:00 12/09/17 10:00 12/09/17 10:00 12/09/17 10:00 12/09/17 10:00 General NAD ASSESSMENT AND PLAN: 77yo F wtih PMH HTN, diverticulsis s/p colon resection, benign pulmonary tumor s /p resection presented to the Er after episode of dizzyness 1. Dizzyness- likely BPPV vs uncontrolled HTN. no repeat epsiodes. neuro evaluated. can f/u wt neuro as outpatient if symptoms return.carotid doppler neg 2. +UA- unclear if patient has symptoms. will not treat at this time per ID. can have repeat UA and Ucx as outpatient 3. HTN urgency- improved. cont norvasc with home management. 4.awaiting PT eval. if able to ambulate without difficulty can go home. pt states she does not want to go to [facility]. agreed to being formally evaluated
[2017-12-09 14:55] VITALS: BP 155/78; PULSE 74
--- NOTE | 2017-12-09 16:15 | DS ---
Physical Exam: SUBJECTIVE: Patient seen and examined OBJECTIVE: Vital Signs Period Temp Pulse Resp BP Sys/Ruth Pulse Ox Last 24 Hr 97.9 F-98.9 F 60-92 18-20 121-180/73-94 96-98 PHYSICAL EXAM GENERAL: The patient is awake, alert, and fully oriented, in no acute distress. HEAD: Normal with no signs of trauma. EYES: PERRL, extraocular movements intact, sclera anicteric, conjunctiva clear. ENT: Ears normal, nares patent, oropharynx clear without exudates, moist mucous membranes. NECK: Trachea midline, full range of motion, supple. LUNGS: Breath sounds equal, clear to auscultation bilaterally, no wheezes, no crackles, no accessory muscle use. HEART: Regular rate and rhythm, S1, S2 without murmur, rub or gallop. ABDOMEN: Soft, nontender, nondistended, normoactive bowel sounds, no guarding, no rebound, no hepatosplenomegaly, no masses. EXTREMITIES: 2+ pulses, warm, well-perfused, no edema. NEUROLOGICAL: Cranial nerves II through XII grossly intact. Normal speech, gait not observed. PSYCH: Normal mood, normal affect. SKIN: Warm, dry, normal turgor, no rashes or lesions noted. LABS Laboratory Results - last 24 hr 12/09/17 12/09/17 11:35 11:35 Vitamin B12 583 TSH 1.74 RPR Titer Nonreactive Imaging -Head CT - Mild volume loss compatible with the patient's age. Probable mild periventricular chronic microvascular ischemic disease changes. No mass lesion or gross acute intracranial pathology are identified. -CTA of head and neck - In the neck, there is a tiny calcified plaque at the right and left common carotid bifurcation without evidence of hemodynamically significant stenosis. Dominant left vertebral artery relative to the right without gross evidence of focal stenosis or dissection. Intracranially, no focal stenosis, aneurysm, major artery cutoff or vascular malformation are identified,bilaterally. C3-C4 mild left paracentral disc bulge/posterior spur formation and left uncovertebral hypertrophy likely impinging left C4 nerve root. -Carotid dopplers - Intimal thickening in the distal common carotid artery bifurcation, bilaterally with small plaques on the right and without evidence of hemodynamically significant stenosis, bilaterally. HOSPITAL COURSE: Date of Admission:12/08/17 Date of Discharge: 12/09/17 Patient is a 77 y/o female with past medical history of HTN, osteoarthritis, DJD , diverticulitis s/p colonic resection, pulmonary resection with benign tumor excision presents to the ED with a one hour history of vertigo. Patient states that she felt fine during the day and then as she was going to bed started to feel that the room was spinning around her when she laid down, and worsened when she sat back up. She tried to lay down to go to sleep but the dizziness persisted and she called her niece to bring her to the ER. She denies any nausea /vomiting/diarrhea. Patient was admitted to rule out CVA. Head CT, CTA of head and neck and carotid dopplers were done which did not show any acute pathology. Neurology was consulted. 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 Recent dizziness may have been caused by UTI vs labyrinthine vertigo. B12, TSH, RPR were normal. Patient was also noted to have abnormal urinalysis and was started on Ceftriaxone 1 gm. ID was consulted and recommended to discontinue antibiotics since patient is asymptomatic and UA likely contaminated or asymptomatic bacteriuria. Blood pressure was also noted to be elevated and Amlodipine 5mg daily was added. PT recommended patient to use a rolling walker while ambulating. Patient was discharged with instructions to follow-up with PCP (Dr. Bocanegra). Minutes to complete discharge: 45 Discharge Summary Reason For Visit: URINARY TRACT INFECTION,DIZZINESS Current Active Problems Asymptomatic bacteriuria (Acute) Dizziness (Acute) UTI (urinary tract infection) (Acute) Condition: Stable - Instructions Diet, Activity, Other Instructions: You were admitted because you had dizziness. It was likely positional and you may have had elevated blood pressure. In the ED, you were given Meclizine which relieved your dizziness. You were also noted to have high blood pressure and started on Amlodipine 5mg daily. Please continue taking your home medications. Please use the rolling walker when standing/walking at all times. Follow-up with your PCP (Dr. Bocanegra) in 1 week. You can follow up with neurology (Dr. Mckee) if your dizziness continues. Call 911 or go to the ED if with any or worsening dizziness, weakness or any new concerns noted. Referrals: Gurwinder Bocanegra MD [Primary Care Provider] - 1 Week Dami Mckee MD [Staff Physician] - 1 Week Disposition: HOME - Home Medications Comprehensive Discharge Medication List: Ambulatory Orders Aspirin Coated [Ecotrin -] 81 mg PO DAILY 12/08/17 Docusate Sodium [Colace] 200 mg PO HS 12/08/17 Losartan Potassium 50 mg PO BID 12/08/17 Amlodipine Besylate [Norvasc -] 5 mg PO DAILY #30 tablet 12/09/17 Cane 1 each MC DAILY #1 each 12/09/17 Walker [Ultra-Light Rollator] 1 each MC DAILY #1 each 12/09/17 This patient is new to me today: Yes Date on this admission: 12/10/17 Emergency Visit: Yes ED Registration Date: 12/08/17 Care time: The patient presented to the Emergency Department on the above date and was hospitalized for further evaluation of their emergent condition. Critical Care patient: No - Discharge Referral Referred to [facility] Med P.C[facility] No
== END 2017-12-09 17:50 | disposition home or self-care (01) ==
LOC: JER 23:52 → UNDOADMOB 12-08 03:13 → JERBED 12-08 03:13 → OBSVTOIN 12-08 05:32 → INTOOBSV 12-08 05:32 → J7W 12-08 10:47 → JERBED 12-08 10:47 → J7W 12-08 18:04
PROVIDERS: ADMIT Internal Medicine; ATTEND Internal Medicine
PROC: 3E03329 Introduction of Other Anti-infective into Peripheral Vein, Percutaneous Approach (ICD-10-PCS; principal; 2017-12-08)
PROC: 3E0337Z Introduction of Electrolytic and Water Balance Substance into Peripheral Vein, Percutaneous Approach (ICD-10-PCS; 2017-12-08)
PROC: 3E013GC Introduction of Other Therapeutic Substance into Subcutaneous Tissue, Percutaneous Approach (ICD-10-PCS; 2017-12-08)
DX: N39.0 Urinary tract infection, site not specified (principal); R42 Dizziness and giddiness; I10 Essential (primary) hypertension; M19.90 Unspecified osteoarthritis, unspecified site; E66.9 Obesity, unspecified; Z68.30 Body mass index [BMI] 30.0-30.9, adult; R82.71 Bacteriuria; I16.0 Hypertensive urgency
CPT/HCPCS: 36415; 70450-TC; 70496-TC; 70498-TC; 80053; 81003; 81015; 82607; 83735; 84100; 84443; 84484; 85025; 85027; 86593; 87086; 93005; 93010; 93880-TC; 96365; 96372; 96375; 97116-GP; 97161-GP; 99285-25; G0378; J7030